=== PATIENT | female | born 1985 | race Two or more races ===

== ENCOUNTER 2023-03-27 15:07 | Inpatient (IN) | payer OTHER ==
[~2023-03-27] VITALS: Ht 152.4 cm; Wt 61.0 kg
[2023-03-27 16:06] LABS: Basophils # (auto) 0 10 ^3/uL (0-0.2); Basophils % (auto) 0.5 % (0.0-2.0); Eosinophils # (auto) 0.1 10 ^3/uL (0-0.8); Eosinophils % (auto) 0.8 % (0.0-7.0); Hematocrit 43.7 % (36.0-46.0); Hemoglobin 14.4 g/dL (12.2-16.2); Lymphocytes # (auto) 2.9 10 ^3/uL (0.4-5.4); Lymphocytes % (auto) 29.8 % (10.0-50.0); Mean Corpuscular Hemoglobin 29.3 pg (28.0-32.0); Mean Corpuscular Volume 88.7 fL (80.0-100.0); Monocytes # (auto) 0.8 10 ^3/uL (0-1.3); Monocytes % (auto) 7.9 % (0.0-12.0); Red Blood Cells 4.93 10^6/uL (4.0-5.20); Red Cell Distribution Width 14.1 % (11.8-14.3); White Blood Cell 9.9 10^3/uL (4.4-10.8)
[2023-03-27 16:25] LABS: Alanine Aminotransferase 119 U/L (7-40); Albumin 4.9 g/dL (3.2-4.8); Alkaline Phosphatase 85 U/L (46-116); Anion Gap 8 (5-15); Aspartate Aminotransferase 98 U/L (13-40); BUN/Creatinine Ratio 11.8 (10.0-20.0); Bilirubin, Total 1.1 mg/dL (0.2-1.0); Blood Urea Nitrogen 9 mg/dL (9-23); Calcium 9.7 mg/dL (8.7-10.4); Carbon Dioxide 24 mmol/L (20-30); Chloride 107 mmol/L (98-107); Glucose 105 mg/dL (74-106); Potassium 3.4 mmol/L (3.5-5.1); Sodium 139 mmol/L (136-145); Total Protein 7.9 g/dL (5.7-8.2)
[2023-03-27 16:33] LABS: Urine Bacteria FEW /hpf (None Seen); Urine Blood Negative /uL (Negative); Urine Clarity HAZY (Clear); Urine Color Yellow (Yellow); Urine Mucus FEW (None Seen); Urine Protein, UAD TRACE (Negative); Urine Specific Gravity 1.031 (1.001-1.035); Urine Urobilinogen Normal (Negative); Urine WBC 12 /hpf (0 - 5)
[2023-03-28 02:47] VITALS: PULSE 93; RESP 16; O2SAT 99
[2023-03-28] MEDS ORDERED: cefTRIAXone 1GM/50ML D5W 50 ML IV ONE (05:45)
[2023-03-28] MEDS ORDERED: LACTATED RINGER'S 1,000 ML IV ONE (05:45)
[2023-03-28] MEDS ORDERED: ONDANSETRON HCL 4 MG/2 ML VIAL IV ONE (05:45)
[2023-03-28] MEDS ORDERED: MORPHINE SULFATE 4 MG/ML SYR/VIAL IV ONE (05:45)
[2023-03-28] MEDS ORDERED: SODIUM CHLORIDE 0.9% 1,000 ML IV ONE (06:15)
[2023-03-28] MEDS ORDERED: MORPHINE SULFATE INJ 2 MG/ml SYRG IV PRN ×2 (07:00)
[2023-03-28] MEDS ORDERED: HYDROcodone-ACET 5/325MG TAB PO PRN (07:00)
[2023-03-28] MEDS ORDERED: ACETAMINOPHEN 325 MG TAB PO PRN (07:00)
[2023-03-28] MEDS ORDERED: NITROGLYCERIN 0.4 MG SL TAB SL PRN (07:00)
[2023-03-28] MEDS ORDERED: DOCUSATE SOD 100 MG CAP PO PRN (07:00)
[2023-03-28] MEDS ORDERED: TEMAZEPAM 15 MG CAP PO PRN (07:00)
[2023-03-28 08:05] VITALS: PULSE 83; RESP 15; O2SAT 97
[2023-03-28] MEDS: SODIUM CHLORIDE 0.9% 1,000 ML IV SCH ×3 (09:16→22:35)
[2023-03-28] MEDS: ENOXAPARIN SOD 40 MG/0.4 ML SYRINGE SC SCH (10:05)
[2023-03-28 17:00] VITALS: BP 103/63; PULSE 73; RESP 19; TEMP 98.3; O2SAT 100
[2023-03-28 20:30] VITALS: PULSE 72; RESP 18; O2SAT 99
[2023-03-28] MEDS: FAMOTIDINE (10MG/ML) 2ML VL IV SCH (22:25)
[2023-03-28 23:39] VITALS: BP 94/57; PULSE 72; RESP 18; TEMP 98.3; O2SAT 99
[2023-03-28 23:55] VITALS: PULSE 72; RESP 18; O2SAT 99
[2023-03-29] VITALS (8 sets, daily range): BP systolic 95–108; BP diastolic 54–71; PULSE 72–101; RESP 16–18; TEMP 98–98.8; O2SAT 98–100
[2023-03-29 06:24] LABS: Basophils # (auto) 0 10 ^3/uL (0-0.2); Basophils % (auto) 0.6 % (0.0-2.0); Eosinophils # (auto) 0.2 10 ^3/uL (0-0.8); Eosinophils % (auto) 2.9 % (0.0-7.0); Hematocrit 37.3 % (36.0-46.0); Hemoglobin 12.1 g/dL (12.2-16.2); Lymphocytes # (auto) 2.8 10 ^3/uL (0.4-5.4); Lymphocytes % (auto) 38.8 % (10.0-50.0); Mean Corpuscular Hemoglobin 29.4 pg (28.0-32.0); Mean Corpuscular Hgb Conc. 32.4 g/dL (32.0-36.0); Mean Corpuscular Volume 90.6 fL (80.0-100.0); Monocytes # (auto) 0.7 10 ^3/uL (0-1.3); Monocytes % (auto) 10.1 % (0.0-12.0); Neutrophils # (auto) 3.4 10 ^3/uL (1.6-8.6); Neutrophils % (auto) 47.6 % (37.0-80.0); Nucleated Red Blood Cells % 0.1 %; Red Blood Cells 4.11 10^6/uL (4.0-5.20); Red Cell Distribution Width 13.8 % (11.8-14.3); White Blood Cell 7.1 10^3/uL (4.4-10.8)
[2023-03-29 06:34] LABS: Alanine Aminotransferase 108 U/L (7-40); Albumin 3.5 g/dL (3.2-4.8); Alkaline Phosphatase 64 U/L (46-116); Anion Gap 7 (5-15); Aspartate Aminotransferase 31 U/L (13-40); Calcium 8.3 mg/dL (8.5-10.1); Carbon Dioxide 22 mmol/L (20-30); Chloride 111 mmol/L (98-107); Glucose 89 mg/dL (74-106); Sodium 140 mmol/L (136-145)
[2023-03-29 06:35] LABS: Bilirubin, Total 1.2 mg/dL (0.2-1.0); Total Protein 5.7 g/dL (5.7-8.2)
[2023-03-29 06:39] LABS: BUN/Creatinine Ratio 8.1 (10.0-20.0); Blood Urea Nitrogen < 5 mg/dL (9-23)
[2023-03-29 08:26] LABS: INR 1.11 (0.9-1.15); Partial Thromboplastin Time 28.5 SEC (24.5-34.5); Prothrombin Time 11.6 sec (9.3-11.8)
[2023-03-29] MEDS: FAMOTIDINE (10MG/ML) 2ML VL IV SCH (09:52)
[2023-03-29] MEDS: SODIUM CHLORIDE 0.9% 1,000 ML IV SCH ×3 (09:52→23:12)
[2023-03-29] MEDS: cefTRIAXone 1GM/50ML D5W 50 ML IV SCH (09:53)
[2023-03-29] MEDS: ENOXAPARIN SOD 40 MG/0.4 ML SYRINGE SC SCH (10:00)
[2023-03-29] MEDS ORDERED: SODIUM CHLORIDE LOCK 10 ML ONE (12:19)
[2023-03-29] MEDS ORDERED: LIDOCAINE VISCOUS 2% 15ML UD ONE (12:19)
[2023-03-29] MEDS: fentaNYL CITRATE 100 MCG/2 ML VL ONE ×2 (12:54→12:57)
[2023-03-29] MEDS: MIDAZOLAM HCL 5 MG/ML-1ML VIAL ONE ×2 (12:54→12:57)
[2023-03-29] MEDS: diphenhdrAMINE HCL 50 MG/1 ML VL ONE ×2 (12:54→12:56)
[2023-03-29] MEDS: SUCRALFATE 1 GM/10 ML ORAL SUSP PO SCH ×2 (17:46→22:30)
[2023-03-29] MEDS: PANTOPRAZOLE 40 MG TAB PO SCH (22:30)
[2023-03-30 05:00] VITALS: BP 101/58; PULSE 71; RESP 16; TEMP 98; O2SAT 99
[2023-03-30] MEDS: SUCRALFATE 1 GM/10 ML ORAL SUSP PO SCH ×4 (06:03→21:41)
[2023-03-30 08:00] VITALS: PULSE 72; RESP 18; O2SAT 99
[2023-03-30] MEDS ORDERED: ROCURONIUM 10MG/ML 10ML VIAL IV ONE (08:19)
[2023-03-30] MEDS ORDERED: MEPERIDINE HCL (25 MG/ML) 1ML VIAL ONE (08:19)
[2023-03-30] MEDS ORDERED: GLYCOPYRROLATE 0.2 MG/ML 1ML VIAL ONE (08:19)
[2023-03-30] MEDS ORDERED: SODIUM CHLORIDE LOCK 10 ML ONE (08:19)
[2023-03-30] MEDS ORDERED: MIDAZOLAM HCL 2MG/2ML 2ml VIAL (1mg/ml) ONE (08:19)
[2023-03-30] MEDS ORDERED: ONDANSETRON HCL 4 MG/2 ML VIAL ONE (08:19)
[2023-03-30] MEDS ORDERED: fentaNYL CITRATE 100 MCG/2 ML VL ONE (08:19)
[2023-03-30] MEDS ORDERED: DexAMETHasone SOD PHOS 10MG/1ML VIAL INJ ONE (08:19)
[2023-03-30] MEDS ORDERED: NEOSTIGMINE 1 MG/ML INJ (10mg/10ML VIAL) ONE (08:19)
[2023-03-30] MEDS ORDERED: LIDOCAINE 1%-Mpf/Epinephrine 1:200,000 30ml VIAL ONE (08:25)
[2023-03-30] MEDS ORDERED: BUPIVACAINE HCL 50 ML ONE (08:26)
[2023-03-30] MEDS ORDERED: cefTRIAXone 1GM/50ML D5W 50 ML IV ONE (08:28)
[2023-03-30] MEDS: cefTRIAXone 1GM/50ML D5W 50 ML IV SCH (09:00)
[2023-03-30] MEDS: SODIUM CHLORIDE 0.9% 1,000 ML IV SCH ×2 (09:00→17:31)
[2023-03-30 09:25] VITALS: BP 95/51; PULSE 74; RESP 18; RESP 20; TEMP 97.9; O2SAT 98; O2SAT 99
[2023-03-30] MEDS ORDERED: HYDROmorphone HCL 2 MG/ML VL/or syr IV PRN (09:45)
[2023-03-30] MEDS ORDERED: MORPHINE SULFATE INJ 2 MG/ml SYRG IV PRN (09:45)
[2023-03-30] MEDS ORDERED: METOCLOPRAMIDE HCL 5MG/ml INJ 2ml VIAL IV PRN (09:45)
[2023-03-30] MEDS: HYDROmorphone HCL 2 MG/ML VL/or syr IV PRN ×3 (09:50→10:10)
[2023-03-30] MEDS: ENOXAPARIN SOD 40 MG/0.4 ML SYRINGE SC SCH (10:00)
[2023-03-30] MEDS: PANTOPRAZOLE 40 MG TAB PO SCH ×2 (10:40→21:41)
[2023-03-30 13:00] VITALS: BP 96/62; PULSE 73; RESP 19; TEMP 97.9; O2SAT 99
[2023-03-30] MEDS: ONDANSETRON HCL 4 MG/2 ML VIAL IV PRN (17:29)
[2023-03-30] MEDS ORDERED: SUCCINYLCHOLINE CHLORIDE 20 MG/ML 10ML VIAL IV ONE (19:59)
[2023-03-30] MEDS ORDERED: PROPOFOL 10 MG/ML 20 ML IV ONE (19:59)
[2023-03-30 20:00] VITALS: PULSE 74; RESP 22; O2SAT 97
[2023-03-30 22:00] VITALS: BP 105/67; PULSE 74; RESP 22; TEMP 97.6; O2SAT 97
[2023-03-31] MEDS: SODIUM CHLORIDE 0.9% 1,000 ML IV SCH ×3 (01:40→18:20)
[2023-03-31 05:00] VITALS: BP 93/58; PULSE 76; RESP 22; TEMP 98.3; O2SAT 97
[2023-03-31 06:30] LABS: Basophils # (auto) 0 10 ^3/uL (0-0.2); Basophils % (auto) 0.3 % (0.0-2.0); Eosinophils # (auto) 0.1 10 ^3/uL (0-0.8); Eosinophils % (auto) 0.4 % (0.0-7.0); Hematocrit 35.6 % (36.0-46.0); Hemoglobin 11.7 g/dL (12.2-16.2); Lymphocytes # (auto) 2.5 10 ^3/uL (0.4-5.4); Lymphocytes % (auto) 18.9 % (10.0-50.0); Mean Corpuscular Hemoglobin 29.7 pg (28.0-32.0); Mean Corpuscular Hgb Conc. 32.9 g/dL (32.0-36.0); Mean Corpuscular Volume 90.4 fL (80.0-100.0); Monocytes # (auto) 1.1 10 ^3/uL (0-1.3); Monocytes % (auto) 8.6 % (0.0-12.0); Neutrophils # (auto) 9.4 10 ^3/uL (1.6-8.6); Neutrophils % (auto) 71.8 % (37.0-80.0); Red Blood Cells 3.93 10^6/uL (4.0-5.20); Red Cell Distribution Width 13.7 % (11.8-14.3)
[2023-03-31] MEDS: SUCRALFATE 1 GM/10 ML ORAL SUSP PO SCH ×3 (06:43→17:00)
[2023-03-31 08:00] VITALS: PULSE 76; RESP 17; O2SAT 97
[2023-03-31 09:00] VITALS: BP 106/59; PULSE 92; RESP 17; TEMP 97.3; O2SAT 97
[2023-03-31] MEDS: cefTRIAXone 1GM/50ML D5W 50 ML IV SCH (09:44)
[2023-03-31] MEDS: PANTOPRAZOLE 40 MG TAB PO SCH (09:51)
[2023-03-31] MEDS: ENOXAPARIN SOD 40 MG/0.4 ML SYRINGE SC SCH (09:52)
[2023-03-31] MEDS ORDERED: HYDR-4798 PO (11:03)
[2023-03-31] MEDS ORDERED: PANT40TA2 PO (11:03)
[2023-03-31] MEDS ORDERED: SUCR1TAB22 OR (11:03)
[2023-03-31 13:00] VITALS: BP 104/61; PULSE 75; RESP 18; TEMP 98.6; O2SAT 96
[2023-03-31] MEDS: ONDANSETRON HCL 4 MG/2 ML VIAL IV PRN (15:02)
[2023-03-31 17:00] VITALS: BP 103/64; PULSE 77; RESP 18; TEMP 97.6; O2SAT 98
[2023-03-31 18:38] VITALS: BP 106/59; PULSE 76; RESP 17; TEMP 36.4; O2SAT 97
== END 2023-03-31 20:00 | disposition home or self-care (01) | DRG 263 ==
LOC: ER 15:07 → OVERFLOW 03-28 07:01 → WEST WING 03-28 14:10
PROVIDERS: ADMIT Nurse Practitioner; ATTEND Nurse Practitioner
PROC: 0DB68ZX Excision of Stomach, Via Natural or Artificial Opening Endoscopic, Diagnostic (ICD-10-PCS; 2023-03-29)
PROC: 0DB98ZX Excision of Duodenum, Via Natural or Artificial Opening Endoscopic, Diagnostic (ICD-10-PCS; principal; 2023-03-29 12:48)
PROC: 0FT44ZZ Resection of Gallbladder, Percutaneous Endoscopic Approach (ICD-10-PCS; 2023-03-30)
DX: K80.10 Calculus of gallbladder with chronic cholecystitis without obstruction (principal); R71.0 Precipitous drop in hematocrit; K29.70 Gastritis, unspecified, without bleeding; N30.00 Acute cystitis without hematuria; K59.00 Constipation, unspecified
CPT/HCPCS: 36415; 43239; 74176; 78226; 80053; 81001; 82247; 84702; 85025; 85610; 85730; 86850; 86900; 86901; 87086; G0378; J0330; J0696; J1100; J2250; J2405; J2704; J3490